=== PATIENT | male | born 1980 | race Caucasian/White ===

== ENCOUNTER 2016-12-27 09:37 | Emergency (ER) | payer SELFPAY ==
[~2016-12-27] VITALS: Ht 180.3 cm; Wt 174.6 kg
[~2016-12-27 09:37] MED LIST: ANUSOL HC,ANUCO25 MG PO
[2016-12-27 10:00] LABS: BASO # 0.1 10*3/uL (0.0-0.1); BASO % 0.6 % (0.0-1.0); EOS # 0.2 10*3/uL (0.0-0.4); EOS % 1.4 % (1.0-4.0); HEMATOCRIT 44.3 % (42.0-52.0); HEMOGLOBIN 15.5 g/dl (14.0-18.0); LYMPH # 3.8 10*3/uL (1.3-4.4); LYMPH % 32.2 % (27.0-41.0); MEAN CELL VOLUME 82.8 fl (80.0-94.0); MEAN PLATELET VOLUME 9.4 fl (9.6-12.3); MONO % 8.3 % (3.0-9.0); NEUT # 6.7 10*3/uL (2.3-7.9); NEUT % 57.2 % (47.0-73.0); PLATELET COUNT AUTOMATED 262 10*3/uL (130-400); RED BLOOD COUNT 5.35 10*6/uL (4.50-5.90); RED CELL DISTRI WIDTH 13.3 % (0-14.5); WHITE BLOOD COUNT 11.7 10*3/uL (4.8-10.8)
[2016-12-27 10:09] LABS: ACT PARTIAL THROMBO TIME 21.1 SECONDS (20.8-31.5)
[2016-12-27 10:16] LABS: ALBUMIN 3.9 gm/dl (3.1-4.5); ALKALINE PHOSPHATASE 123 U/L (45-117); BUN 9 mg/dl (7-24); CHLORIDE 103 mmol/L (98-107); CREATININE 1.04 mg/dL (0.70-1.30); POTASSIUM 3.4 mmol/L (3.5-5.1); SGOT/AST 21 IU/L (3-35); SGPT/ALT 45 U/L (12-78); SODIUM 135 mmol/L (136-145); TOTAL PROTEIN 7.6 gm/dL (6.4-8.2)
[2016-12-27 10:24] LABS: TROPONIN I < 0.015 ng/ml (<0.045)
[2016-12-27 11:55] VITALS: BP 162/78
== END 2016-12-27 12:44 | disposition home or self-care (01) ==
LOC: ED 09:37
PROVIDERS: Student in an Organized Health Care Education/Training Program
DX: R07.89 Other chest pain (principal); Z88.1 Allergy status to other antibiotic agents

== ENCOUNTER 2019-07-22 00:29 | Emergency (ER) | payer OTHER ==
[~2019-07-22] VITALS: Ht 177.8 cm; Wt 176.2 kg
[2019-07-22 01:04] LABS: BASO # 0.1 10*3/uL (0.0-0.1); BASO % 0.6 % (0.0-1.0); EOS # 0.1 10*3/uL (0.0-0.4); EOS % 1.2 % (1.0-4.0); LYMPH % 19.4 % (27.0-41.0); MEAN CELL VOLUME 84.8 fl (80.0-94.0); MEAN CORPUSCULAR HGB 29.3 pg (27.0-31.0); MEAN CORPUSCULAR HGB CONC 34.5 g/dl (33.0-37.0); MONO # 0.7 10*3/uL (0.1-1.0); MONO % 6.7 % (3.0-9.0); NEUT # 7.5 10*3/uL (2.3-7.9); NEUT % 71.6 % (47.0-73.0); PLATELET COUNT AUTOMATED 218 10*3/uL (130-400); RED BLOOD COUNT 5.19 10*6/uL (4.50-5.90); RED CELL DISTRI WIDTH 13.2 % (0-14.5); WHITE BLOOD COUNT 10.4 10*3/uL (4.8-10.8)
[2019-07-22 01:23] LABS: ALBUMIN 3.6 gm/dl (3.1-4.5); ALKALINE PHOSPHATASE 107 U/L (45-117); BUN 10 mg/dl (7-24); CHLORIDE 106 mmol/L (98-107); CREATININE 0.87 mg/dL (0.70-1.30); SGOT/AST 29 IU/L (3-35); SGPT/ALT 38 U/L (12-78); SODIUM 137 mmol/L (136-145); TOTAL PROTEIN 7.5 gm/dL (6.4-8.2)
[2019-07-22 01:24] LABS: TROPONIN I < 0.015 ng/ml (<0.045)
[2019-07-22 01:25] LABS: POTASSIUM 3.9 mmol/L (3.5-5.1)
[2019-07-22 01:45] VITALS: BP 124/58
[2019-07-22] MEDS ORDERED: PEPCID20 MG PO (02:12)
== END 2019-07-22 03:04 | disposition home or self-care (01) ==
LOC: ED 00:29
PROVIDERS: Emergency Medicine
DX: K21.0 Gastro-esophageal reflux disease with esophagitis (principal); R07.89 Other chest pain; E66.9 Obesity, unspecified; F17.200 Nicotine dependence, unspecified, uncomplicated; Z88.1 Allergy status to other antibiotic agents

== ENCOUNTER → 2021-08-27 | Outpatient (CLI) | payer OTHER ==
[~2021-08-27] MED LIST changes: +PEPCID20 MG PO
== END | disposition home or self-care (01) ==
LOC: RAD 16:06
PROVIDERS: ATTEND Physician Assistant
DX: S46.911A Strain of unspecified muscle, fascia and tendon at shoulder and upper arm level, right arm, initial encounter (principal); X58.XXXA Exposure to other specified factors, initial encounter; Y93.89 Activity, other specified; Y92.89 Other specified places as the place of occurrence of the external cause; Y99.8 Other external cause status

== ENCOUNTER → 2022-01-27 | Day surgery (SDC) | payer BC, OTHER ==
[~2022-01-27] VITALS: Ht 180.3 cm; Wt 163.7 kg
[~2022-01-27] MED LIST changes: +COLACE100 MG PO; +HYDROCODONE-AC1 EAC1 PO; +IRBESARTAN150 MG PO; +METFORMIN HYDR500 MG PO; +ONDANSETRON HYDR4 M1 PO
[2022-01-27 16:00] VITALS: BP 127/64
[2022-01-27 16:14] VITALS: BP 112/68
[2022-01-27 16:28] VITALS: BP 108/61
[2022-01-27 16:45] VITALS: BP 116/60
[2022-01-27 17:25] VITALS: BP 118/58
== END | disposition home or self-care (01) ==
LOC: SDC 01-24 14:00
PROVIDERS: ATTEND Surgery
DX: K43.6 Other and unspecified ventral hernia with obstruction, without gangrene (principal); K42.9 Umbilical hernia without obstruction or gangrene; I10 Essential (primary) hypertension; E11.9 Type 2 diabetes mellitus without complications; F17.210 Nicotine dependence, cigarettes, uncomplicated; E66.9 Obesity, unspecified; Z68.43 Body mass index [BMI] 50.0-59.9, adult; Z79.899 Other long term (current) drug therapy

== ENCOUNTER 2022-02-20 00:47 | Emergency (ER) | payer BC, OTHER ==
[~2022-02-20] VITALS: Ht 180.3 cm; Wt 160.6 kg
[2022-02-21] MEDS ORDERED: PERCOCET 5-3251 EACH PO (16:06)
== END 2022-02-20 03:10 | disposition left against medical advice (07) ==
LOC: ED 00:47
DX: S42.491A Other displaced fracture of lower end of right humerus, initial encounter for closed fracture (principal); Z88.8 Allergy status to other drugs, medicaments and biological substances; Z87.891 Personal history of nicotine dependence; Z98.890 Other specified postprocedural states; X58.XXXA Exposure to other specified factors, initial encounter; Y93.72 Activity, wrestling; Y92.89 Other specified places as the place of occurrence of the external cause; Y99.8 Other external cause status

== ENCOUNTER → 2022-03-02 | Outpatient (CLI) | payer BC, OTHER ==
[~2022-03-02] MED LIST changes: +PERCOCET 5-3251 EACH PO
== END | disposition home or self-care (01) ==
LOC: ORTHO 04:12
PROVIDERS: ATTEND Orthopaedic Surgery
DX: S42.341D Displaced spiral fracture of shaft of humerus, right arm, subsequent encounter for fracture with routine healing (principal); X58.XXXD Exposure to other specified factors, subsequent encounter

== ENCOUNTER → 2022-03-08 | Day surgery (SDC) | payer BC, OTHER ==
[2022-03-04 12:38] VITALS: BP 127/60
[2022-03-04 13:58] LABS: BUN 19 mg/dl (9-23); CHLORIDE 103 mmol/L (98-107); POTASSIUM 4.5 mmol/L (3.4-5.1)
[2022-03-08] VITALS (8 sets, daily range): BP systolic 113–148; BP diastolic 58–79
[~2022-03-08] VITALS: Ht 177.8 cm; Wt 161.0 kg
== END | disposition home or self-care (01) ==
LOC: SDC 03-04 12:30
PROVIDERS: ATTEND Orthopaedic Surgery
DX: S42.341A Displaced spiral fracture of shaft of humerus, right arm, initial encounter for closed fracture (principal); I10 Essential (primary) hypertension; E66.9 Obesity, unspecified; E78.00 Pure hypercholesterolemia, unspecified; E11.9 Type 2 diabetes mellitus without complications; F17.210 Nicotine dependence, cigarettes, uncomplicated; Z68.43 Body mass index [BMI] 50.0-59.9, adult; X58.XXXA Exposure to other specified factors, initial encounter; Y93.89 Activity, other specified; Y92.89 Other specified places as the place of occurrence of the external cause; Y99.8 Other external cause status

== ENCOUNTER → 2022-03-16 | Outpatient (CLI) | payer BC, OTHER | END | disposition home or self-care (01) | LOC: ORTHO 04:18 | PROVIDERS: ATTEND Orthopaedic Surgery | DX: S42.341D Displaced spiral fracture of shaft of humerus, right arm, subsequent encounter for fracture with routine healing (principal); X58.XXXD Exposure to other specified factors, subsequent encounter ==

== ENCOUNTER → 2022-03-23 | Outpatient (CLI) | payer BC, OTHER | END | disposition home or self-care (01) | LOC: ORTHO 02:15 | PROVIDERS: ATTEND Orthopaedic Surgery | DX: S42.341D Displaced spiral fracture of shaft of humerus, right arm, subsequent encounter for fracture with routine healing (principal); X58.XXXD Exposure to other specified factors, subsequent encounter ==

== ENCOUNTER → 2022-04-20 | Outpatient (CLI) | payer OTHER | END | disposition home or self-care (01) | LOC: ORTHO 08:01 | PROVIDERS: ATTEND Orthopaedic Surgery | DX: S42.341D Displaced spiral fracture of shaft of humerus, right arm, subsequent encounter for fracture with routine healing (principal); X58.XXXD Exposure to other specified factors, subsequent encounter ==

== ENCOUNTER → 2022-06-01 | Outpatient (CLI) | payer OTHER | END | disposition home or self-care (01) | LOC: ORTHO 00:36 | PROVIDERS: ATTEND Orthopaedic Surgery | DX: S42.341D Displaced spiral fracture of shaft of humerus, right arm, subsequent encounter for fracture with routine healing (principal); X58.XXXD Exposure to other specified factors, subsequent encounter ==

== ENCOUNTER → 2022-07-01 | Outpatient (CLI) | payer OTHER | END | disposition home or self-care (01) | LOC: RAD 15:37 | PROVIDERS: ATTEND Orthopaedic Surgery | DX: S42.341D Displaced spiral fracture of shaft of humerus, right arm, subsequent encounter for fracture with routine healing (principal); X58.XXXD Exposure to other specified factors, subsequent encounter ==

== ENCOUNTER → 2022-08-31 | Outpatient (CLI) | payer OTHER | END | disposition home or self-care (01) | LOC: ORTHO 01:36 | PROVIDERS: ATTEND Orthopaedic Surgery | DX: S42.341D Displaced spiral fracture of shaft of humerus, right arm, subsequent encounter for fracture with routine healing (principal); M19.011 Primary osteoarthritis, right shoulder; X58.XXXD Exposure to other specified factors, subsequent encounter ==

== ENCOUNTER → 2022-12-07 | Outpatient (CLI) | payer OTHER | END | disposition home or self-care (01) | LOC: ORTHO 00:54 | PROVIDERS: ATTEND Orthopaedic Surgery | DX: S42.341D Displaced spiral fracture of shaft of humerus, right arm, subsequent encounter for fracture with routine healing (principal); X58.XXXD Exposure to other specified factors, subsequent encounter ==

== ENCOUNTER 2023-11-01 17:03 | Inpatient (IN) | payer OTHER ==
[~2023-11-01] VITALS: Ht 178 cm; Wt 180.5 kg
[2023-11-01 17:24] VITALS: BP 166/81
[2023-11-01] MEDS ORDERED: SODIUM CHLORIDE 0.9% 1,000 ML IV ONE (18:20)
[2023-11-01] MEDS ORDERED: methylPREDNISolone sod succ 125 MG VIAL IV ONE (18:20)
[2023-11-01] MEDS ORDERED: Albuterol Sulf/Ipratropium 3 ML VIAL NEB ONE ×2 (18:20→20:30)
[2023-11-01 18:35] LABS: BASO # 0.1 10*3/uL (0.0-0.1); BASO % 0.6 % (0.0-1.0); EOS % 0.1 % (1.0-4.0); HEMATOCRIT 48.6 % (42.0-52.0); LYMPH % 6.9 % (27.0-41.0); MEAN CELL VOLUME 84.7 fl (80.0-94.0); MEAN CORPUSCULAR HGB 28.9 pg (27.0-31.0); MEAN CORPUSCULAR HGB CONC 34.2 g/dl (33.0-37.0); MEAN PLATELET VOLUME 9.8 fl (9.6-12.3); MONO # 0.9 10*3/uL (0.1-1.0); MONO % 6.4 % (3.0-9.0); NEUT # 12.4 10*3/uL (2.3-7.9); NEUT % 85.7 % (47.0-73.0); PLATELET COUNT AUTOMATED 226 10*3/uL (130-400); RED BLOOD COUNT 5.74 10*6/uL (4.50-5.90); RED CELL DISTRI WIDTH 12.9 % (0-14.5); WHITE BLOOD COUNT 14.5 10*3/uL (4.8-10.8)
[2023-11-01 18:56] LABS: ALKALINE PHOSPHATASE 141 U/L (46-116); BUN 7 mg/dl (9-23); CHLORIDE 101 mmol/L (98-107); POTASSIUM 4.5 mmol/L (3.4-5.1); SGPT/ALT 28 U/L (5-49); TOTAL PROTEIN 7.5 gm/dL (6.0-8.0)
[2023-11-01] MEDS ORDERED: ACETAMINOPHEN 325 MG TAB PO ONE (19:50)
[2023-11-01] MEDS ORDERED: Ketorolac Tromethamine 30 MG/ML VIAL IV ONE (19:50)
[2023-11-01] MEDS ORDERED: Magnesium Hydroxide 30 ML UDC PO PRN (21:40)
[2023-11-01] MEDS ORDERED: TEMAZEPAM 15 MG CAP PO PRN (21:40)
[2023-11-01] MEDS ORDERED: ACETAMINOPHEN 650 MG SUPP R PRN (21:40)
[2023-11-01] MEDS ORDERED: BISACODYL 10 MG SUPP R PRN (21:40)
[2023-11-01] MEDS ORDERED: BISACODYL 5 MG TAB PO PRN (21:40)
[2023-11-01] MEDS ORDERED: ACETAMINOPHEN 325 MG TAB PO PRN (21:40)
[2023-11-01] MEDS ORDERED: Albuterol Sulf/Ipratropium 3 ML VIAL NEB SCH (21:45)
[2023-11-01] MEDS ORDERED: Doxycycline Hyclate 100 MG in SODIUM CHLORIDE 0.9% 250 ML IV SCH (21:45)
[2023-11-01] MEDS ORDERED: Dexamethasone Sodium Phospha 4 MG/ML VIAL IV SCH (21:45)
[2023-11-01] MEDS ORDERED: Acetaminophen/Oxycodone 5 MG/325 MG TABLET PO PRN ×2 (21:55)
[2023-11-01] MEDS ORDERED: LEVOFLOXACIN 100 ML IV SCH (22:00)
[2023-11-01 23:01] VITALS: BP 143/62
[2023-11-02] MEDS ORDERED: DEXTROSE 10 % IN WATER 250 ML IV PRN (01:10)
[2023-11-02 05:36] VITALS: BP 141/78
[2023-11-02] MEDS ORDERED: Pantoprazole Sodium 40 MG TAB PO SCH (06:00)
[2023-11-02 07:05] LABS: BASO % 0.2 % (0.0-1.0); HEMATOCRIT 47.2 % (42.0-52.0); LYMPH # 0.6 10*3/uL (1.3-4.4); LYMPH % 6.3 % (27.0-41.0); MEAN CELL VOLUME 84.4 fl (80.0-94.0); MEAN CORPUSCULAR HGB 28.6 pg (27.0-31.0); MEAN CORPUSCULAR HGB CONC 33.9 g/dl (33.0-37.0); MEAN PLATELET VOLUME 10.1 fl (9.6-12.3); MONO # 0.3 10*3/uL (0.1-1.0); MONO % 2.9 % (3.0-9.0); NEUT # 8.7 10*3/uL (2.3-7.9); PLATELET COUNT AUTOMATED 218 10*3/uL (130-400); RED BLOOD COUNT 5.59 10*6/uL (4.50-5.90); RED CELL DISTRI WIDTH 12.8 % (0-14.5); WHITE BLOOD COUNT 9.7 10*3/uL (4.8-10.8)
[2023-11-02] MEDS ORDERED: INSULIN LISPRO 1 UNIT/0.01 ML SQ SCH (07:30)
[2023-11-02 07:33] LABS: ALKALINE PHOSPHATASE 139 U/L (46-116); BUN 11 mg/dl (9-23); CHLORIDE 99 mmol/L (98-107); CHOLESTEROL 208 mg/dL (<200); FREE T4 1.38 ng/dl (0.89-1.76); LDL CHOLESTEROL 141 mg/dL (9-159); POTASSIUM 4.4 mmol/L (3.4-5.1); SGPT/ALT 26 U/L (5-49); TOTAL PROTEIN 7.6 gm/dL (6.0-8.0); TRIGLYCERIDES 111 mg/dl (<150)
[2023-11-02 08:00] VITALS: BP 160/78
[2023-11-02 08:55] LABS: VITAMIN D, 25-HYDROXY 8.4 ng/mL (30-100)
[2023-11-02] MEDS ORDERED: SODIUM CHLORIDE 0.9% 100 ML BAG IV ONE (09:40)
[2023-11-02] MEDS ORDERED: IOHEXOL 350 MG/ML 100 ML VIAL IV ONE (09:40)
[2023-11-02] MEDS ORDERED: Enoxaparin Sodium 40 MG/0.4 ML SYR SC SCH (10:00)
[2023-11-02] MEDS ORDERED: Losartan Potassium 50 MG TAB PO SCH (10:00)
[2023-11-02] MEDS ORDERED: SODIUM CHLORIDE 0.9% 1,000 ML IV ONE (11:40)
[2023-11-02 12:00] VITALS: BP 166/80
[2023-11-02] MEDS ORDERED: PERFLUTREN PROTEIN-A MICROSPHR 3 ML VIAL IV ONE (14:29)
[2023-11-02 15:02] VITALS: BP 147/84
[2023-11-02 20:00] VITALS: BP 151/89
[2023-11-03] VITALS: BP 128/68
[2023-11-03 06:13] LABS: BUN 17 mg/dl (9-23); CHLORIDE 101 mmol/L (98-107)
[2023-11-03 06:19] LABS: BASO % 0.3 % (0.0-1.0); EOS # 0.1 10*3/uL (0.0-0.4); EOS % 0.5 % (1.0-4.0); HEMATOCRIT 45.4 % (42.0-52.0); LYMPH # 2.5 10*3/uL (1.3-4.4); LYMPH % 21.8 % (27.0-41.0); MEAN CELL VOLUME 86.5 fl (80.0-94.0); MEAN CORPUSCULAR HGB CONC 33.5 g/dl (33.0-37.0); MEAN PLATELET VOLUME 10.4 fl (9.6-12.3); MONO # 1.2 10*3/uL (0.1-1.0); MONO % 10.8 % (3.0-9.0); NEUT # 7.4 10*3/uL (2.3-7.9); NEUT % 64.9 % (47.0-73.0); PLATELET COUNT AUTOMATED 223 10*3/uL (130-400); RED BLOOD COUNT 5.25 10*6/uL (4.50-5.90); RED CELL DISTRI WIDTH 13.2 % (0-14.5); WHITE BLOOD COUNT 11.3 10*3/uL (4.8-10.8)
[2023-11-03 08:00] VITALS: BP 158/55
[2023-11-03] MEDS ORDERED: PREDNISONE10 MG PO (09:36)
[2023-11-03] MEDS ORDERED: VITAMIN D350 MCG PO (09:36)
[2023-11-03] MEDS ORDERED: DOXYCYCLINE HY100 M3 PO (09:36)
[2023-11-03] MEDS ORDERED: METFORMIN850 MG PO (09:36)
[2023-11-03] MEDS ORDERED: Cholecalciferol 2,000 UNIT TABLET (50 MCG) PO SCH (10:00)
[2023-11-03] MEDS ORDERED: VENT7GM INH (11:15)
== END 2023-11-03 10:15 | disposition home or self-care (01) | DRG 720 ==
LOC: ED 17:03 → EDHOLD 20:33 → 4E 11-02 14:52
PROVIDERS: Internal Medicine; Nurse Practitioner Family; Student in an Organized Health Care Education/Training Program; ADMIT Internal Medicine; ATTEND Internal Medicine
DX: A41.9 Sepsis, unspecified organism (principal); J96.01 Acute respiratory failure with hypoxia; J44.1 Chronic obstructive pulmonary disease with (acute) exacerbation; R65.20 Severe sepsis without septic shock; J98.4 Other disorders of lung; E11.65 Type 2 diabetes mellitus with hyperglycemia; R79.89 Other specified abnormal findings of blood chemistry; E11.69 Type 2 diabetes mellitus with other specified complication; G47.33 Obstructive sleep apnea (adult) (pediatric); E55.9 Vitamin D deficiency, unspecified; Z88.8 Allergy status to other drugs, medicaments and biological substances; Z82.49 Family history of ischemic heart disease and other diseases of the circulatory system; Z71.6 Tobacco abuse counseling

== ENCOUNTER → 2024-09-06 | Outpatient (CLI) | payer OTHER ==
[~2024-09-06] MED LIST changes: +DOXYCYCLINE HY100 M3 PO; +METFORMIN850 MG PO; +PREDNISONE10 MG PO; +VENT7GM INH; +VITAMIN D350 MCG PO
== END | disposition home or self-care (01) ==
LOC: ORTHO 02:02
PROVIDERS: ATTEND Orthopaedic Surgery
DX: M25.522 Pain in left elbow (principal)